=== PATIENT | male | born 1960 | race Hispanic/Latino ===

== ENCOUNTER → 2024-01-26 | Outpatient (CLI) | payer OTHER ==
[2024-01-26 15:16] LABS: CREATININE 0.9 mg/dL (0.5-1.3)
== END | disposition home or self-care (01) ==
LOC: LAB 14:27
PROVIDERS: ATTEND Internal Medicine Cardiovascular Disease
DX: I65.23 Occlusion and stenosis of bilateral carotid arteries (principal)
CPT/HCPCS: 36415; 82565; 84520

== ENCOUNTER → 2024-01-31 | Outpatient (CLI) | payer OTHER ==
[~2024-01-31] MED LIST: IOHEXOL-350 75 ML VIAL IV ONE
== END | disposition home or self-care (01) ==
LOC: RAH 10:15
PROVIDERS: ATTEND Internal Medicine Cardiovascular Disease
DX: I65.23 Occlusion and stenosis of bilateral carotid arteries (principal); M47.812 Spondylosis without myelopathy or radiculopathy, cervical region
CPT/HCPCS: 70498; Q9967